=== PATIENT | male | born 1970 | race African-American/Black ===

== ENCOUNTER 2020-05-01 10:48 | Inpatient (IN) ==
[2020-05-01] MEDS ORDERED: SODIUM CHLORIDE 0.9% 1000ML 1,000 ML IV SCH (11:00)
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
[2020-05-01 11:11] LABS: Hematocrit (blood only) 45.5 % (42-52); Mean Corpuscular Hemoglobin 29.4 pg (25-34); Mean Corpuscular Volume 89.2 fL (80-100); Mean Platelet Volume 10.2 fL (7.4-10.4); Platelet Count 209 K/uL (130-400); RDW Coefficient of Variation 13.7 % (11.5-14.5); RDW Standard Deviation 44.9 fL (36.4-46.3); White Blood Count 6.93 K/uL (4.8-10.8)
[2020-05-01 11:15] LABS: iSTAT Creatinine 0.9 mg/dl (0.6-1.3); iSTAT Hemoglobin 10.5 g/dl (14.0-18.0); iSTAT Ionized Calcium 0.8 mmol/l (1.12-1.32); iSTAT Potassium 6.1 mmol/L (3.3-5.0)
[2020-05-01] MEDS ORDERED: levETIRAcetam 1,000 MG in 0.9 % SODIUM CHLORIDE 100 ML IV STA (11:29)
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
[2020-05-01 11:31] LABS: Alanine Aminotransferase 31 U/L (12-78); Aspartate Aminotransferase 18 U/L (15-37); BUN Creatinine Ratio 6.7 (10-20); Blood Urea Nitrogen 14 mg/dl (7-18); Calcium 9.6 mg/dl (8.5-10.1); Carbon Dioxide 13 mmol/L (21-32); Chloride 107 mmol/L (98-107); Est GFR (African American) 40.6; Glucose 95 mg/dl (70-99); Lipase 112 U/L (73-393); Potassium 3.7 mmol/L (3.5-5.1); Sodium 142 mmol/L (136-145)
[2020-05-01 11:33] LABS: Acetaminophen < 2 ug/ml (10-30)
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
[2020-05-01 11:35] LABS: Salicylate < 1.7 mg/dl (2.8-20)
[2020-05-01 11:40] LABS: Albumin Globulin Ratio 0.9 (0.9-2); Alkaline Phosphatase 91 U/L (45-117); Bilirubin,Total 0.4 mg/dl (0.2-1); Globulin 4.4 gm/dl (2.5-4.0); Total Protein 8.4 gm/dl (6.4-8.2); Troponin I < 0.015 ng/ml (0-0.045)
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
[2020-05-01] MEDS ORDERED: OPTIRAY 320 125ml IV ONE (11:50)
[2020-05-01 11:56] LABS: ALC (manual) 3.94 K/uL (1.2-3.4); ANC (manual) 2.49 K/uL (1.4-6.5); Eosinophils # (manual) 0.12 K/uL (0-0.5); Eosinophils % (manual) 1.8 %; Lymphocytes % (manual) 20.2 %; Monocytes # (manual) 0.37 K/uL (0.11-0.59); Monocytes % (manual) 5.3 %; Neutrophils # (manual) 2.49 K/uL (1.4-6.5); RBC Morphology Unremarkable; Reactive Lymphocytes # (manual) 2.54 K/uL; Reactive Lymphocytes % (manual) 36.7 %
[2020-05-01 12:21] LABS: Amphetamines+Metham, Urine Neg (Neg); Appearance Urine Clear (Clear); Bacteria Urine Automated Negative (Negative); Barbiturates, Urine Neg (Neg); Benzodiazepine, Urine Neg (Neg); Bilirubin Urine Negative (Negative); Blood Urine 2+ (Negative); Cocaine, Urine Neg (Neg); Color Urine Yellow; Glucose Urine UA Negative (Negative); Ketones Urine Negative (Negative); Leukocyte Esterase Urine Negative (Negative); MDMA (Ecstacy), Urine Neg (Neg); Methadone, Urine Neg (Neg); Nitrite Urine Negative (Negative); Opiate, Urine Neg (Neg); Phencyclidine, Urine Neg (Neg); Protein Urine 2+ (Negative); RBC Urine Automated 0-4 /hpf (0-4); Specific Gravity Urine 1.026 (1.000-1.030); Urobilinogen Urine Negative (Negative)
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
[2020-05-01] MEDS ORDERED: LABETALOL HCL IV 5 MG/ML 20ML IV STA ×2 (15:17→17:27)
[2020-05-01] MEDS ORDERED: LABETALOL HCL IV 5 MG/ML 20ML IV ONE (15:18)
[2020-05-01 16:33] LABS: Albumin Level 3.5 gm/dl (3.4-5.0); BUN Creatinine Ratio 7.4 (10-20); Calcium 8.9 mg/dl (8.5-10.1); Creatinine Clr Calc Pharmacy 73.4 ml/min; Est GFR (African American) 56.5; Est GFR (Non-African American) 48.8; Potassium 3.4 mmol/L (3.5-5.1)
[2020-05-01 16:35] LABS: Albumin Globulin Ratio 0.8 (0.9-2); Bilirubin,Total 0.4 mg/dl (0.2-1); Globulin 4.4 gm/dl (2.5-4.0); Total Protein 7.9 gm/dl (6.4-8.2)
--- NOTE | 2020-05-01 17:08 | CT Scan Report ---
CT head/brain wo con CLINICAL HISTORY: Altered mental status. Seizure. Abnormal prior CT scan. COMPARISON STUDY: Earlier in the day TECHNIQUE: Axial CT of the brain is performed from the vertex to the skull base. IV contrast was not administered for this examination. A dose lowering technique was utilized adhering to the principles of ALARA. CT DOSE: 537.48 mGy.cm FINDINGS: There are postsurgical changes of a left temporoparietal craniotomy. There is no CT evidence of acute cortical infarction. There is left temporal lobe parietal lobe and frontal lobe encephalomalacia sim ilar to the preceding study. There is minor extra-axial fluid subjacent to the craniotomy site, uncha nged from the preceding study. There is no acute hemorrhage. There are patchy white matter hypodensities likely on a small vessel basis. There is no evidence of pathologic ventricular dilatation. There is a left mastoid effusion. IMPRESSION: 1. No acute intracranial findings 2. Postsurgical changes of a left-sided craniotomy 3. Trace extra-axial fluid collection subjacent to the craniotomy site unchanged from the prior study . 4. Left mastoid effusion. ACT 112: Negative or not required by law. Electronically signed by: Ede Tom M.D. 05/01/2020 5:07 PM
[2020-05-01] MEDS ORDERED: LORazepam 2 MG/ML VIAL (IM USE) IM PRN (17:10)
[2020-05-01] MEDS ORDERED: ONDANSETRON INJ 2 MG/ML 2 ML VIAL IV PRN (17:10)
[2020-05-01] MEDS ORDERED: LABETALOL HCL IV 5 MG/ML 20ML IV PRN (17:10)
[2020-05-01] MEDS: ACETAMINOPHEN 325 MG TAB PO PRN ×2 (17:24→21:51)
[2020-05-01] MEDS: FUROSEMIDE 20 MG TAB PO SCH (18:09)
[2020-05-01] MEDS: lisinopriL 40 MG TAB PO SCH (18:10)
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
[2020-05-01] MEDS: NIFEdipine EXTENDED REL 30 MG TABCR PO SCH (19:35)
[2020-05-01] MEDS: HydrALAZINE TAB 50 MG TAB PO SCH (19:35)
[2020-05-01] MEDS: levETIRAcetam 500 MG TAB PO SCH (22:39)
[2020-05-02] MEDS ORDERED: NITROGLYCERIN 2% OINTMENT 30GM TUBE EXT SCH
[2020-05-02] MEDS ORDERED: STAT IV Infusion **Titration per Protocol STA (01:10)
[2020-05-02] MEDS: HYDROmorphone INJ 0.5 MG/0.5 ML SYR IV PRN ×2 (03:29→12:38)
[2020-05-02 07:02] LABS: Basophils # (auto) 0.01 K/uL (0-0.2); Basophils % (auto) 0.1 %; Eosinophils # (auto) 0.09 K/uL (0-0.5); Eosinophils % (auto) 1.3 %; Hematocrit (blood only) 43.8 % (42-52); Immature Granulocytes # (auto) 0.01 K/uL (0.00-0.02); Immature Granulocytes % (auto) 0.1 %; Lymphocytes # (auto) 1.71 K/uL (1.2-3.4); Mean Corpuscular Hemoglobin 29.4 pg (25-34); Mean Corpuscular Hgb Conc 34.2 g/dL (32-36); Mean Corpuscular Volume 85.9 fL (80-100); Mean Platelet Volume 10.2 fL (7.4-10.4); Monocytes # (auto) 0.45 K/uL (0.11-0.59); Monocytes % (auto) 6.6 %; Neutrophils # (auto) 4.58 K/uL (1.4-6.5); Neutrophils % (auto) 66.9 %; Platelet Count 189 K/uL (130-400); RDW Coefficient of Variation 13.9 % (11.5-14.5); RDW Standard Deviation 43.2 fL (36.4-46.3); White Blood Count 6.85 K/uL (4.8-10.8)
[2020-05-02] MEDS: NIFEdipine EXTENDED REL 30 MG TABCR PO SCH (08:46)
[2020-05-02] MEDS: HydrALAZINE TAB 50 MG TAB PO SCH (08:46)
[2020-05-02] MEDS: lisinopriL 40 MG TAB PO SCH (08:46)
[2020-05-02] MEDS: FUROSEMIDE 20 MG TAB PO SCH (08:46)
--- NOTE | 2020-05-02 11:53 | Magnetic Resonance Report ---
MRI OF THE BRAIN WITHOUT CONTRAST CLINICAL HISTORY: Breakthrough seizures. History of prior craniotomy with skull graft. History of rico or intracranial hemorrhage COMPARISON STUDY: CT scan dated 05/01/2020, MRI dated 02/28/2011 FINDINGS: Sagittal T1, axial diffusion, proton density and T2 weighted axial, coronal FLAIR, and axial T1-weigh maddie images were acquired. No intra or extra-axial mass lesions are visualized Axial diffusion-weighted images reveal no evidence of acute or subacute infarction. There is mild asymmetric prominence of the left lateral ventricle, finding which is felt to be second lee to volume loss. Proton density T2-weighted and FLAIR images reveal a 3 mm extra-axial fluid collection subjacent to t he craniotomy site. There is left temporal lobe encephalomalacia. There is left frontal lobe encephal omalacia. In addition there are multiple foci of increased T2 and FLAIR signal within the white matte r, likely on a small vessel basis. Postsurgical changes of a left temporoparietal craniotomy. There are no abnormal flow voids. There is a left mastoid effusion. IMPRESSION: 1. Postsurgical changes of a left-sided craniotomy 2. Trace 3 mm extra-axial fluid collection subjacent to the craniotomy site 3. Left mastoid effusion 4. Left temporal lobe and left frontal lobe encephalomalacia 5. No acute findings identified ACT 112: Negative or not required by law. Electronically signed by: Ede Tom M.D. 05/02/2020 11:52 AM
[2020-05-02] MEDS: levETIRAcetam 500 MG TAB PO SCH (12:00)
--- NOTE | 2020-05-02 14:13 | Electrocardiogram Report ---
Test Reason : Blood Pressure : / mmHG Vent. Rate : 093 BPM Atrial Rate : 093 BPM P-R Int : 178 ms QRS Dur : 108 ms QT Int : 376 ms P-R-T Axes : 044 030 058 degrees QTc Int : 467 ms Normal sinus rhythm Possible Left atrial enlargement Borderline ECG When compared with ECG of 07-JAN-2018 20:27, No significant change was found Confirmed by Babak Borja ([id number]) on 05/02/2020 2:13:43 PM Referred By: MD BALL Confirmed By:Babak Borja
[2020-05-02 16:10] LABS: BUN Creatinine Ratio 5.7 (10-20); Calcium 8.9 mg/dl (8.5-10.1); Creatinine Clr Calc Pharmacy 70.3 ml/min; Est GFR (African American) 58.7; Est GFR (Non-African American) 50.6
[2020-05-02] MEDS ORDERED: POTASSIUM CHLORIDE 20 MEQ TABCR PO STA (16:22)
[2020-05-02] MEDS: ACETAMINOPHEN 325 MG TAB PO PRN (16:40)
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
== END 2020-05-02 18:33 | disposition home health service (06) | DRG 101 ==
LOC: ED 10:48 → SUATTDRO 15:27 → 2E 15:27 → 1E 05-02 07:36